=== PATIENT | male | born 1970 ===

== ENCOUNTER 2024-11-21 08:51 | Outpatient (CLI) | payer BC, SELFPAY | END 2024-11-21 08:52 | disposition home or self-care (01) | PROVIDERS: PCP Emergency Medicine; Visit Provider Emergency Medicine | DX: E11.65 Type 2 diabetes mellitus with hyperglycemia (principal); Z79.84 Long term (current) use of oral hypoglycemic drugs; Z79.85 Long-term (current) use of injectable non-insulin antidiabetic drugs | CPT/HCPCS: 80053; 82043; 82570 ==

== ENCOUNTER 2025-02-20 09:21 | Outpatient (CLI) | payer BC, SELFPAY | END 2025-02-20 09:22 | disposition home or self-care (01) | PROVIDERS: PCP Emergency Medicine; Visit Provider Emergency Medicine | DX: E11.9 Type 2 diabetes mellitus without complications (principal); E78.5 Hyperlipidemia, unspecified; Z79.85 Long-term (current) use of injectable non-insulin antidiabetic drugs | CPT/HCPCS: 80061; 82043; 82570 ==